=== PATIENT | female | born 1965 | race African-American/Black ===

== ENCOUNTER 2023-03-25 04:10 | Day surgery (SDC) | payer OTHER ==
[2023-03-22 17:32] VITALS: BMI 26.9
[2023-03-25] MEDS ORDERED: BUPIVACAINE HCL/PF 0.25% (2.5MG/ML) 10 ML VIAL ONE (12:35)
[2023-03-25] MEDS ORDERED: BUPIVACAINE HCL/PF 0.5% (5MG/ML) 10 ML VIAL ONE (12:35)
[2023-03-25] MEDS ORDERED: LIDOCAINE HCL 1%, 10 MG/ML (10ML VIAL) MDV ONE (12:35)
[2023-03-25] MEDS ORDERED: LIDOCAINE HCL 1%, 10 MG/ML (20ML VIAL) INF ONE ×3 (12:47→13:48)
[2023-03-25] MEDS ORDERED: BUPIVACAINE HCL/PF 0.5% (5MG/ML) 10 ML VIAL IJ ONE ×2 (12:48→16:32)
[2023-03-25] MEDS ORDERED: PROPOFOL 40 ML ONE (13:32)
[2023-03-25] MEDS ORDERED: ceFAZolin SODIUM 1 GM VIAL IVPB ONE (13:43)
[2023-03-25] MEDS ORDERED: MIDAZOLAM HCL 2 MG/2 ML SINGLE DOSE VIAL ONE (13:53)
[2023-03-25] MEDS ORDERED: ceFAZolin SODIUM 1 GM VIAL ONE ×2 (13:54)
[2023-03-25] MEDS ORDERED: ONDANSETRON 4 MG/2 ML VIAL ONE (13:54)
[2023-03-25] MEDS ORDERED: KETOROLAC TROMETHAMINE 30 MG/1 ML VIAL ONE (13:54)
[2023-03-25] MEDS ORDERED: DEXAMETHASONE SOD PHOSPHATE 4 MG/1 ML VIAL ONE (13:54)
[2023-03-25] MEDS ORDERED: PROMETHAZINE HCL 25 MG/1 ML VIAL IVPB PRN (16:57)
[2023-03-25] MEDS ORDERED: ONDANSETRON 4 MG/2 ML VIAL IVPUSH PRN (16:57)
[2023-03-25] MEDS ORDERED: oxyCODONE HCL 5 MG TABLET PO PRN ×2 (16:57)
[2023-03-25] MEDS ORDERED: ACETAMINOPHEN 1000 MG/100 ML BAG IVPB ONE (16:58)
[2023-03-25] MEDS ORDERED: LACTATED RINGERS SOLUTION 1,000 ML IV SCH (17:00)
[2023-03-25] MEDS ORDERED: ACETAMINOPHEN INJECTION 100 ML IVPB ONE (17:05)
[2023-03-25 18:18] VITALS: TEMP 97
[2023-03-25 19:41] VITALS: BP 142/76; PULSE 82; RESP 20
== END 2023-03-25 19:12 | disposition home or self-care (01) ==
LOC: JASU-SURG 04:10
PROVIDERS: ATTEND Podiatrist Foot Surgery
PROC: 0QSN04Z Reposition Right Metatarsal with Internal Fixation Device, Open Approach (ICD-10-PCS; principal; 2023-03-25 14:30)
DX: M20.11 Hallux valgus (acquired), right foot (principal)
CPT/HCPCS: 28297; C1713; 76000-TC-FY; 88305-TC; 88311-TC; 94760; C1889